=== PATIENT | male | born 1995 ===

== ENCOUNTER 2020-11-27 13:15 | Outpatient (REF) | payer OTHER, SELFPAY ==
[2020-11-27 15:50] LABS: Anion Gap 7.2 mmol/L (3-11); BUN 20 mg/dL (7-18); CO2 29.8 mmol/L (21.0-32.0); CREATININE 0.9 mg/dL (0.70-1.30); Calcium 8.9 mg/dL (8.5-10.1); Calculated LDL 107 mg/dL (<100); Chloride 105 mmol/L (98-107); Cholesterol 180 mg/dL (<200); Ferritin 200 ng/mL (26-388); Glucose 94 mg/dL (74-106); HDL Cholesterol 47 mg/dL (40-60); Potassium 4.9 mmol/L (3.5-5.1); Sodium 142 mmol/L (136-145); Triglyceride 132 mg/dL (<150)
== END 2020-11-27 13:16 | disposition home or self-care (01) ==
LOC: NCHCN 13:15
PROVIDERS: Visit Provider Physician Assistant
DX: E55.9 Vitamin D deficiency, unspecified (principal); Z00.00 Encounter for general adult medical examination without abnormal findings; Z13.220 Encounter for screening for lipoid disorders
CPT/HCPCS: 80048; 80061; 82306; 82728

== ENCOUNTER 2021-01-22 13:33 | Outpatient (REF) | payer OTHER, SELFPAY ==
[2021-01-22 14:43] LABS: HCT 45.3 % (40.0-50.0); HGB 14.9 g/dL (13.5-17.5); MCHC 32.9 % (32.0-36.0); MCV 91.3 fL (80-95); MPV 10.7 fL (8.0-11.0); Platelet Count 420 10^3/uL (130-400); RBC 4.96 10^6/uL (4.36-5.78); RDW-SD 40.4 fL; WBC 8.33 10^3/uL (4.4-10.8)
[2021-01-22 14:53] LABS: Anion Gap 9.9 mmol/L (3-11); BUN 9 mg/dL (7-18); CO2 29.1 mmol/L (21.0-32.0); Calcium 10.2 mg/dL (8.5-10.1); Chloride 103 mmol/L (98-107); Glucose 130 mg/dL (74-106); Sodium 142 mmol/L (136-145)
== END 2021-01-22 13:34 | disposition home or self-care (01) ==
LOC: NCHCN 13:33
PROVIDERS: Visit Provider Physician Assistant
DX: R55 Syncope and collapse (principal)
CPT/HCPCS: 80048; 85027

== ENCOUNTER 2021-01-24 13:43 | Outpatient (CLI) | payer OTHER, SELFPAY ==
--- NOTE | 2021-03-09 15:21 | W.CARDEVENT ---
Date of service: 03/09/21 Time of Service: 15:21 Cardiac Event Recorder Referring Provider:: Alexis Messer Indications:: Syncope Cardiac Event Note: This is a 30-day event monitor reportedly ordered for syncope Rhythm throughout with sinus. Average heart rate was 76. Minimum heart rate was 51, maximum 114 There were very rare ventricular ectopic beats. There was 1 ventricular couplet There were no significant supraventricular dysrhythmias. There was no atrial fibrillation. There was no high-grade AV block. There were no pauses greater than 3 seconds Patient symptoms corresponded to sinus rhythm
== END 2021-01-24 13:44 | disposition home or self-care (01) ==
LOC: RT 13:45
PROVIDERS: Visit Provider Physician Assistant
DX: R55 Syncope and collapse (principal)
CPT/HCPCS: 93270

== ENCOUNTER 2025-01-31 17:50 | Outpatient (REF) | payer OTHER, SELFPAY ==
[2025-01-31 17:54] LABS: Hemoglobin A1C 4.9 % (<5.7)
[2025-01-31 20:13] LABS: ALT 16 U/L (16-63); AST 14 U/L (15-37); Albumin 4.3 g/dL (3.4-5.0); Alkaline Phosphatase 68 U/L (46-116); Anion Gap 6.3 mmol/L (3-11); BUN 12 mg/dL (7-18); Bilirubin, Total 0.5 mg/dL (0.2-1.0); CO2 28.7 mmol/L (21.0-32.0); Calcium 8.7 mg/dL (8.5-10.1); Calculated LDL 73 mg/dL (<100); Chloride 107 mmol/L (98-107); Cholesterol 133 mg/dL (<200); Estimated GFR 123.63 (mL/min/1.73m2); Glucose 97 mg/dL (74-106); HDL Cholesterol 46 mg/dL (>or=40); Potassium 4.0 mmol/L (3.5-5.1); Sodium 142 mmol/L (136-145); Total Protein 6.9 g/dL (6.4-8.2); Triglyceride 71 mg/dL (<150); Vitamin D 25 Total 11 ng/mL (30-100)
== END 2025-01-31 17:51 | disposition home or self-care (01) ==
LOC: NCHCN 17:50
PROVIDERS: PCP Physician Assistant; Visit Provider Physician Assistant
DX: Z13.220 Encounter for screening for lipoid disorders (principal); Z13.1 Encounter for screening for diabetes mellitus; E55.9 Vitamin D deficiency, unspecified; Z00.00 Encounter for general adult medical examination without abnormal findings
CPT/HCPCS: 80053; 80061; 82306; 83036

== ENCOUNTER 2025-05-02 18:09 | Emergency (ER) | payer OTHER, SELFPAY ==
[2025-05-02 18:10] VITALS: BP 143/81; PULSE 79; RESP 14; TEMP 37.2; O2SAT 98
[2025-05-02 18:20] VITALS: BP 143/81; PULSE 79; RESP 18; TEMP 37.2; O2SAT 98
--- NOTE | 2025-05-02 18:30 | DI.CT_ITS ---
Exam(s) CT ABDOMEN PELVIS W EXAM: CT ABDOMEN PELVIS W x CLINICAL HISTORY: RLQ pain. TECHNIQUE: Imaging Protocol: Axial computed tomography images with coronal and sagittal reformatted images were created and reviewed CONTRAST MATERIAL: Intravenous: Omnipaque-350 100cc Oral: None COMPARISON: No exams were available for comparison FINDINGS: VISUALIZED LUNG BASES: No nodules nor pleural effusions evident. ABDOMEN: There is no ascites. LIVER: There are no focal hepatic lesions evident. No dilated intrahepatic ducts. GALLBLADDER/BILIARY: No obvious gallbladder pathology. CBD is not dilated. PANCREAS: No evidence of pancreatic mass nor dilatation of the pancreatic duct. SPLEEN: Spleen is not enlarged. No obvious intrasplenic lesions. Splenic and portal veins are patent. ADRENALS: There are no significant adrenal masses. KIDNEYS:No cysts evident. No solid renal masses. No calculi nor hydronephrosis.. ABDOMINAL AORTA: Abdominal aorta is not enlarged. LYMPH NODES:There is no retroperitoneal nor paraaortic adenopathy. ABDOMINAL WALL: No evidence of significant anterior abdominal wall nor inguinal hernia. GI: There is no evidence of bowel obstruction, free air, nor abscess. Terminal ileum appears unremarkable. Ileocecal valve unremarkable. PELVIS: GI: No evidence of appendicitis.There few slightly prominent lymph nodes in the mesentery medial to the cecum, the largest of these measuring 17 by 10 mm.No evidence of sigmoid diverticulitis. LYMPH NODES: As above. REPRODUCTIVE: Prostate size normal. Seminal vesicles unremarkable. URINARY BLADDER: No calculi nor obvious masses evident OSSEOUS: No fractures and no significant osseous lesions. SI joints appear unremarkable. Lumbar spine facet joints appear unremarkable. No osseous lesions. IMPRESSION: 1. No evidence of acute appendicitis 2. Few slightly enlarged lymph nodes are noted in the mesentery medial to the cecum measuring up to 17 x 10 mm. This may indicate an element of mesenteric adenitis. Preliminary view read report was reviewed RADIATION DOSE DELIVERED: 411.98mGy.cm Total DLP DATA REPOSITORY: All CT scans at this facility are submitted to the National Radiology Data Registry (NRDR) Dose Index Registry (DIR) with the [employer] ([employer]). RADIATION OPTIMIZATION: All CT scans at this facility use at least one of these dose optimization techniques: automated exposure control; mA and/or kV adjustment per patient size (includes targeted exams where dose is matched to clinical indication); or iterative reconstruction.
[2025-05-02] MEDS: ACETAMINOPHEN 500 MG/50 ML BAG 200 MG IVPB (18:55)
[2025-05-02 18:56] LABS: Abs Immature Grans 0.03 10^3/uL (0.0-0.06); HCT 42.3 % (40.0-50.0); HGB 14.4 g/dL (13.5-17.5); Immature Grans % 0.5 %; MCH 29.3 pg (27.0-33.0); MCHC 34.0 % (32.0-36.0); MCV 86 fL (80-95); MPV 9.5 fL (8.0-11.0); Platelet Count 391 10^3/uL (130-400); RBC 4.91 10^6/uL (4.36-5.78); RDW 12.2 % (11.8-14.1); RDW-SD 38.7 fL; WBC 6.23 10^3/uL (4.4-10.8)
[2025-05-02 19:05] LABS: Glucose Negative (Negative)
[2025-05-02 19:11] LABS: ALT 18 U/L (16-63); AST 14 U/L (15-37); Albumin 4.5 g/dL (3.4-5.0); Alkaline Phosphatase 84 U/L (46-116); Anion Gap 8.8 mmol/L (3-11); BUN 11 mg/dL (7-18); Bilirubin, Total 0.5 mg/dL (0.2-1.0); C-Reactive Protein 2.09 mg/dL (<or=0.5); CO2 30.2 mmol/L (21.0-32.0); Calcium 8.9 mg/dL (8.5-10.1); Chloride 102 mmol/L (98-107); Glucose 102 mg/dL (74-106); Potassium 3.5 mmol/L (3.5-5.1); Sodium 141 mmol/L (136-145); Total Protein 7.8 g/dL (6.4-8.2)
[2025-05-02 19:20] LABS: Lab Add On Test DONE
[2025-05-02] MEDS: Omnipaque 350 MG/ML 100 ML BTL IJ (19:28)
[2025-05-02] MEDS: Normal Saline Flush 10 ML SYR IVP (19:29)
[2025-05-02] MEDS: Normal Saline - Diluent 50 ML VIAL IJ (19:29)
[2025-05-02 19:31] LABS: Lipase 23 U/L (<78)
--- NOTE | 2025-05-02 20:15 | DI.VRAD_ITS ---
PROCEDURE INFORMATION: Exam: CT Abdomen And Pelvis With Contrast Exam date and time: 05/02/2025 7:29 PM Age: 29 years old Clinical indication: Abdominal pain; Localized; Right lower quadrant (rlq); Rlq pain TECHNIQUE: Imaging protocol: Computed tomography of the abdomen and pelvis with contrast. Radiation optimization: All CT scans at this facility use at least one of these dose optimization techniques: automated exposure control; mA and/or kV adjustment per patient size (includes targeted exams where dose is matched to clinical indication); or iterative reconstruction. Contrast material: OMNIPAQUE 350; Contrast volume: 100 ml; Contrast route: INTRAVENOUS (IV); COMPARISON: No relevant prior studies available. FINDINGS: Liver: Normal. No mass. Gallbladder and biliary ducts: Normal. No calcified stones. No ductal dilation. Pancreas: Normal. No ductal dilation. Spleen: Normal. No splenomegaly. Adrenal glands: Normal. No mass. Kidneys and ureters: There is no evidence of renal or ureteral calcifications. Stomach and bowel: Unremarkable. No obstruction. No mucosal thickening. Appendix: Normal appendix Intraperitoneal space: Unremarkable. No free air. No significant fluid collection. Vasculature: Unremarkable. No abdominal aortic aneurysm. Lymph nodes: Nodes medial to the cecum 12 x 10 mm and 16 x 10 mm and 14 x 12 mm. Findings may reflect mesenteric adenitis. Urinary bladder: Unremarkable as visualized. Reproductive: Unremarkable as visualized. Bones/joints: Unremarkable. No acute fracture. Soft tissues: Unremarkable. IMPRESSION: Nodes medial to the cecum 12 x 10 mm and 16 x 10 mm and 14 x 12 mm. Findings may reflect mesenteric adenitis. Dictated and Authenticated by: Taurus Villanueva MD. Orderin Darvin Lloyd MD
[2025-05-02] MEDS: Ketorolac 15 MG/ML VIAL IVP (20:39)
[2025-05-02 21:13] VITALS: BP 142/81; PULSE 55; RESP 14; TEMP 36.6; O2SAT 97
[2025-05-02] MEDS: Cyclobenzaprine 10 MG TAB, 3 TABS/BTL PO (21:19)
--- NOTE | 2025-05-02 22:17 | ED.GENADUL_ITS ---
Discharge Plan Disposition Patient Disposition: Home Condition: Stable Discharge Details Clinical Impression: Mesenteric adenitis Primary Care Provider: Alexis Messer ED Provider: Prema Boston Home Meds and New Rx's Prescriptions: New cyclobenzaprine 10 mg tablet 10 mg PO TID PRNQty: 10 0RF Continued lamotrigine 100 mg tablet 75 mg PO DAILY Discharge Instructions Instructions: Mesenteric Lymphadenitis (DC) Additional Instructions: Take Motrin and Tylenol as needed for pain You may take cyclobenzaprine to help with sleep, do not operate your vehicle while taking this medication You may apply hot water bottle to your stomach Mesenteric adenitis is self-limited and should resolve on its own, if you develop fever or worsening pain you should be reevaluated Please follow-up with your PCP for recheck within the next 3 days Stand Alone Forms: Portal Information Referrals: Alexis Messer [Primary Care Provider, Medicine] [facility] General Date/Time Provider Initiated Documentation: 05/02/25 18:19 . HPI Narrative: This 29-year-old male presents with report of periumbilical pain that started at 4:30 AM radiating to right lower quadrant denies any additional injuries was resting when the pain started. Denies any exacerbating or relieving factors. No dysuria or frequency. Related Data Home Medications Medication Instructions Recorded Confirmed cyclobenzaprine 10 mg tablet 10 mg PO TID PRN #10 tabs 05/02/25 lamotrigine 100 mg tablet 75 mg PO DAILY 05/02/2504/23 Previous Rx's Medication Instructions Recorded cyclobenzaprine 10 mg tablet 10 mg PO TID PRN #10 tabs 05/02/25 Allergies Allergy/AdvReac Type Severity Reaction Status Date / Time bee venom protein (honey bee) Allergy Severe Anaphylaxis Verified 05/02/25 18:18 General Stated Complaint: Abd Prob TOOTIE: 3 Exam Narrative Exam Narrative: Alert and oriented male periumbilical pain and some mild right lower quadrant pain no rebound or guarding no CVA tenderness, Course Vital Signs Vital signs: Vital Signs Temperature 37.2 C 05/02/25 18:10 Pulse 79 05/02/25 18:10 Respiratory Rate 14 05/02/25 18:10 Blood Pressure 143/81 H 05/02/25 18:10 Pulse Oximetry 98 05/02/25 18:10 Temperature 36.6 C 05/02/25 21:13 Temperature Source Oral 05/02/25 21:13 Pulse 55 L 05/02/25 21:13 Respiratory Rate 14 05/02/25 21:13 Blood Pressure 142/81 H 05/02/25 21:13 Blood Pressure Mean 101 05/02/25 21:13 Blood Pressure Position Sitting 05/02/25 18:20 Pulse Oximetry 97 05/02/25 21:13 Oxygen Delivery Method Room Air 05/02/25 18:10 Oxygen Flow Rate 0 05/02/25 18:10 Pain Level 3 05/02/25 21:13 Lab/Test Results Lab/Test Results: Laboratory Tests Range/Units 05/02/25 05/02/25 18:50 19:00 WBC (4.4-10.8) 10^3/uL 6.23 RBC (4.36-5.78) 10^6/uL 4.91 Hgb (13.5-17.5) g/dL 14.4 Hct (40.0-50.0) % 42.3 MCV (80-95) fL 86 MCH (27.0-33.0) pg 29.3 MCHC (32.0-36.0) % 34.0 RDW (11.8-14.1) % 12.2 Plt Count (130-400) 10^3/uL 391 MPV (8.0-11.0) fL 9.5 Immature Gran % % 0.5 Neutrophils % % 63.9 Lymphocytes % % 18.9 Monocytes % % 14.1 Eosinophils % % 1.6 Basophils % % 1.0 Nucleated RBC % (0.0-0.3) % 0.0 Absolute Neutrophils (1.2-6.7) 10^3/uL 3.98 Absolute Lymphocytes (1.2-3.4) 10^3/uL 1.18 L Absolute Monocytes (0.1-0.8) 10^3/uL 0.88 H Absolute Eosinophils (0.0-0.7) 10^3/uL 0.10 Absolute Basophils (0.0-0.2) 10^3/uL 0.06 Sodium (136-145) mmol/L 141 Potassium (3.5-5.1) mmol/L 3.5 Chloride (98-107) mmol/L 102 Carbon Dioxide (21.0-32.0) mmol/L 30.2 Anion Gap (3-11) mmol/L 8.8 BUN (7-18) mg/dL 11 Creatinine (0.70-1.30) mg/dL 1.1 Est GFR (CKD-EPI 2020) (mL/min/1.73m2) 93.77 Glucose (74-106) mg/dL 102 Calcium (8.5-10.1) mg/dL 8.9 Total Bilirubin (0.2-1.0) mg/dL 0.5 AST (15-37) U/L 14 L ALT (16-63) U/L 18 Alkaline Phosphatase (46-116) U/L 84 C-Reactive Protein (<or=0.5) mg/dL 2.09 H Total Protein (6.4-8.2) g/dL 7.8 Albumin (3.4-5.0) g/dL 4.5 Lipase (<78) U/L 23 Urine Color (Yellow) Yellow Urine Clarity (Clear) Clear Urine pH (5-8) 5.5 Ur Specific [place] (1.005-1.025) 1.020 Urine Protein (Neg-Trace) mg/dL Negative Urine Ketones (Negative) mg/dL Negative Urine Blood (Negative) Negative Urine Nitrite (Negative) Negative Urine Bilirubin (Negative) Negative Urine Urobilinogen (Up to 0.2) mg/dL 0.2 Ur Leukocyte Esterase (Negative) Negative Urine Glucose (Negative) mg/dL Negative Add-On Test Request DONE Medical Decision Making Results: CT abdomen pelvis shows evidence of possible mesenteric adenitis, urinalysis, CBC, CMP are all within normal limits Assessment and plan: Patient with abdominal pain with findings consistent with mesenteric adenitis, nonsurgical abdomen, feeling improvement after Toradol, will give Flexeril for home as needed for discomfort. Reevaluation in 24 to 48 hours encouraged with persistent pain return precautions reviewed and patient expressed understanding PFSH All Active Problems (Updated 05/02/25 @ 21:10 by DEDRA Martinez) Mesenteric adenitis (Acute) Spell of altered cognition (Acute) Medical History Bipolar 1 disorder, depressed, moderate Obesity Syncope Vitamin D deficiency Surgical History S/P ORIF (open reduction internal fixation) fracture arm Family History Brother Multiple sclerosis Uncle Multiple sclerosis Paternal Grandmother Multiple sclerosis Social History Smoking/Tobacco Use Status: Current every day Tobacco Type: e-cigarettes Smoking risk assessment performed?: Yes Alcohol Intake: current Alcohol Intake frequency: holidays/special occasions only Alcohol type: beer and hard liquor Drug use: Daily Substance use type: marijuana Household members: significant other Number of Children: 0 current occupation: Academic Program Specialist Do you feel safe at home: Yes Do you feel safe in your relationship?: Yes
[2025-05-03 00:46] VITALS: BP 136/74; PULSE 67; RESP 18; O2SAT 99
== END 2025-05-02 21:19 | disposition home or self-care (01) ==
PROVIDERS: Emergency Provider Physician Assistant; PCP Physician Assistant
DX: I88.0 Nonspecific mesenteric lymphadenitis (principal); R41.89 Other symptoms and signs involving cognitive functions and awareness; R10.33 Periumbilical pain
CPT/HCPCS: 80053; 83690; 96365; 96375; 99285; 74177; 81003; 85025; 86140; 99284; J0131; J1885; J3490